=== PATIENT | female | born 1970 | race Caucasian/White ===

== ENCOUNTER 2017-03-20 07:40 | Inpatient (IN) | payer OTHER ==
[~2017-03-20] VITALS: Ht 162.6 cm; Wt 126.6 kg
[2017-03-20] VITALS (16 sets, daily range): BP systolic 101–171; BP diastolic 45–86
--- NOTE | ~2017-03-20 | CON ---
[place], [place] REPORT OF CONSULTATION NAME[facility]: [id number] UNIT #: [id number] ROOM: 512 DOCTOR: GLORIA DOS SANTOSRADHA BIRTHDATE: [birth year] DOS: 03/21/2017 REQUESTING PHYSICIAN: Dr. Baig. INDICATION: Symptomatic palpitation. ASSESSMENT: 1. Current presentation with symptomatic palpitation occurred after infighting at patient's family with her grandson and mother. 2. Similar symptoms have been going on for the past 15 years. 3. No reported chest pain, heaviness, tightness. 4. Obesity with a high probability of obstructive sleep apnea. 5. Diabetes. 6. Hypertension. 7. Hyperlipidemia. 8. Active tobacco abuse. 9. Occasional alcohol abuse. PLAN: 1. Cycle cardiac enzymes. 2. Check D-dimer. 3. Initiate Lopressor 25 mg 1 tablet p.o. b.i.d. 4. Enteric-coated aspirin 81 mg. 5. Echocardiogram and stress test can be done as an outpatient. 6. Okay to discharge the patient home with early followup in our clinic within 4-6 weeks. 7. Highly recommend a sleep study as an outpatient. 8. Exercise, weight loss. 9. Call for any change in symptoms at any time. HISTORY AND PHYSICAL: The patient is a pleasant 46-year-old female, unknown to our practice, who was referred by Dr. Baig for further evaluation of complaint of symptomatic palpitation and fluttering of the chest that occurred while patient was having a fight with her son-in-law over her grandchildren along with her mother. The patient has been having these symptoms since her son was 10 years old, currently he is 21. They occur mainly with emotional stress. They last only a few minutes, most of the time they are in seconds. Never had any associated dizziness, lightheadedness or near syncope. Never had any chest pain, chest pressure, heaviness, or tightness. No jaw pain, no left arm pain, no back pain. The patient though after her admission last night, she had a mid back pain yesterday. It was dull, aching, lasting only also a few minutes and resolved spontaneously without any provocation. No relation to activity or deep inspiration. The patient is active, does not follow a regular exercise program. Sleeps on 2 pillows with no reported PND, orthopnea, or pedal edema. The patient does though report snoring. No fever, no chills, no night sweats, maintained good appetite, no weight loss. PAST MEDICAL HISTORY: As reported in my assessment. SOCIAL HISTORY: The patient continues to smoke actively, previous history of [place], [place] REPORT OF CONSULTATION NAME: [facility]: [id number] UNIT #: [id number] ROOM: [facility] DOCTOR: RADHA CASTRO MD BIRTHDATE: [birth year] alcohol abuse, no history of drug abuse. FAMILY HISTORY: The patient's mother is still alive. Her dad at age 48 of lung cancer. She has one brother and one sister with no early family history of heart disease. CURRENT MEDICATIONS: Lipitor, Cozaar, hydrochlorothiazide, Tricor, Lovenox, insulin, Vistaril, Augmentin, Restoril, Zofran, Dulcolax, [place], and Tylenol. ALLERGIES: The patient has no known drug allergies. REVIEW OF SYSTEMS: The patient denies any current headache, diplopia, or blurry vision. No fever, no chills, no night sweats. No abdominal pain, no bright red blood per rectum or tarry stools. The patient admits to joint pain and occasional muscular pain. The patient admits to anxiety and occasional depression. No polyuria, no polydipsia. No skin rash. Review of all other systems has been negative. PHYSICAL EXAMINATION: GENERAL: The patient is alert, oriented x 3, quite pleasant. VITAL SIGNS: Blood pressure 130/70, heart rate 88, respiratory rate of 14, temperature 98.9. HEENT: Extraocular muscles intact. Pupils equal, round, reactive to light. Conjunctivae, no pallor. Throat, no petechiae. NECK: Good carotid upstroke. Unable to appreciate any bruit, no lymphadenopathy, no thyromegaly. HEART: S1, S2 with holosystolic murmur in the left upper sternal border. No rub. No retrosternal heave. CHEST AND BACK: No deformities. LUNGS: Clear to auscultation. Decreased air movement, but no britany wheezing or rales. ABDOMEN: Morbidly obese, soft, nontender. Present bowel sounds. No masses, no bruits. LOWER EXTREMITIES: There is mild ankle edema bilateral with faint distal pulses. NEUROLOGIC: Grossly nonfocal. SKIN: There is venous discoloration in both lower extremities. LABORATORY DATA: White count 6.5, hemoglobin 14.1, potassium 4.1, creatinine is 0.6, GFR more than 60%. Hemoglobin A1c 11.7. Normal liver function tests. CK-MB 0.5, CK is 41. Troponin is less than 0.015. [place], [place] REPORT OF CONSULTATION NAME: IONMADHAV Claribel UNIT #: [id number] ROOM: 512 DOCTOR: RADHA CASTRO MD BIRTHDATE: [birth year] RADHA CASTRO MD CM:CONSTR:REPORT OF CONSULTATION 1816 03/22/17 0056 interface
--- NOTE | ~2017-03-20 | ST ---
[place], [place] EXERCISE STRESS TEST REPORT [id number] UNIT #: [id number] ROOM: 512 DOCTOR: RADHA CASTRO MD BIRTHDATE: [birth year] DOS: INDICATION: Chest pain. PROCEDURE: The patient was exercised on a treadmill using Bairon protocol. The patient exercised for 6 minutes reaching 86% of her maximum predicted heart rate. Maximum workload was 8 METS. Double product 28,310. Test was terminated due to fatigue and shortness of breath. No complaint of chest pain, chest pressure, heaviness or tightness. No back pain. BLOOD PRESSURE RESPONSE: Resting blood pressure 112/61, ending blood pressure 190/60. ELECTROCARDIOGRAM INTERPRETATION: Resting electrocardiogram showing normal sinus rhythm, poor R-wave progression with criteria for left atrial enlargement. At the peak of the stress test, there was no evidence of any significant ST or T-wave changes suggestive of myocardial ischemia. No arrhythmias were noted. SUMMARY: 1. Adequate stress test with good functional capacity. 2. Negative treadmill stress test for stress induced myocardial ischemia. 3. No arrhythmias were noted. 4. Normal blood pressure at rest with normal blood pressure response to exercise. 5. No Myoview was done. RADHA CASTRO MD CM:STRESS:EXERCISE STRESS TEST REPORT [id number] 0001 RADHA CASTRO MD
--- NOTE | ~2017-03-20 | PR ---
[place], [place] PROGRESS NOTE [id number] UNIT #: [id number] ROOM: 512 DOCTOR: RADHA CASTRO MD BIRTHDATE: [birth year] DOS: SUBJECTIVE: The patient is walking in the hallway. The patient had only a single episode of fluttering with no evidence of any arrhythmia. No chest pain. No more back pain. OBJECTIVE: VITAL SIGNS: Blood pressure 118/54, heart rate 84. NECK: Good upstroke. No bruit. HEART: S1, S2 with no rub. LUNGS: Clear to auscultation. EXTREMITIES: Lower extremities, mild ankle edema. ASSESSMENT AND PLAN: Presentation with symptomatic palpitation that has been going on for many years, got worse recently along with atypical back pain and no reported chest pains. The patient stayed overnight in the hospital for that. We would proceed to do a walking stress test without nuclear along with echocardiogram. Continue Lopressor for now along with enteric coated baby aspirin. Switching to Crestor will be advised in view of the patient has ____ along with elevated LDL 159. The patient might benefit from better control of diabetes with a new line of medication. Lovaza or fish oil supplements are highly also recommended. The patient can be discharged home from the cardiac point of view with early followup in our clinic within 4-6 weeks. RADHA CASTRO MD CM:PNAMADOU [id number] RADHA CASTRO MD 03/22/17 1800 interface
[~2017-03-20 07:40] MED LIST: ANAPROX DS550 MG PO; ANUSOL-HC25 MG RC; AUGMENTIN 875 M1 TAB PO; AUGMENTIN XR 101 TER PO; BACTRIM DS 8001 TA1 PO; BENICAR5 MG PO; CEFTIN500 MG PO; CIPRODEX 0.3%-7.5 ML OT; CIPROFLOXACIN500 MG PO; CLARITIN10 MG PO; COLACE100 MG PO; DUONEB 3 MG/3 ML3 M1 INH; GLIPIZIDE5 MG PO; HYDROCODONE BIT1 T11 PO; HYDROMET PO; HYZAAR 50/12.5M1 TAB PO; KEFLEX500 MG PO; LEVAQUIN750 MG PO; MEDROL DOSEPAK4 MG PO; METFORMIN500 MG PO; PERCOCET 325 MG1 TA2 PO; PREDNICOT20 MG PO; SIMVASTATIN20 MG PO; SINGULAIR10 MG PO
[2017-03-20] MEDS ORDERED: AUGMENTIN 875875 MG PO (07:48)
[2017-03-20] MEDS ORDERED: LANTUS100 U/ML SC (07:48)
[2017-03-20 08:03] LABS: BASO % 0.1 % (0.0-1.0); EOS # 0.1 10*3/uL (0.0-0.4); EOS % 0.6 % (1.0-4.0); HEMATOCRIT 44.9 % (37.0-47.0); HEMOGLOBIN 15.2 g/dl (12.0-16.0); LYMPH # 1.8 10*3/uL (1.3-4.4); LYMPH % 23.4 % (27.0-41.0); MEAN CELL VOLUME 86.8 fl (81.0-99.0); MEAN CORPUSCULAR HGB 29.4 pg (27.0-31.0); MEAN CORPUSCULAR HGB CONC 33.9 g/dl (33.0-37.0); MEAN PLATELET VOLUME 11.5 fl (9.6-12.3); MONO # 0.4 10*3/uL (0.1-1.0); MONO % 5.3 % (3.0-9.0); NEUT # 5.5 10*3/uL (2.3-7.9); NEUT % 70.2 % (47.0-73.0); PLATELET COUNT AUTOMATED 190 10*3/uL (130-400); RED BLOOD COUNT 5.17 10*6/uL (4.10-5.10); RED CELL DISTRI WIDTH 11.9 % (0-14.5); WHITE BLOOD COUNT 7.9 10*3/uL (4.8-10.8)
[2017-03-20 08:10] LABS: INTERNATIONAL NORM RATIO 0.9 (2.0-3.5); PROTHROMBIN TIME 9.7 SECONDS (9.0-12.4)
[2017-03-20 08:21] LABS: ALBUMIN 3.3 gm/dl (3.1-4.5); ALKALINE PHOSPHATASE 110 U/L (45-117); BILIRUBIN, TOTAL 0.5 mg/dl (0.2-1.0); BUN 20 mg/dl (7-24); CARBON DIOXIDE 28 mmol/L (21-32); CHLORIDE 97 mmol/L (98-107); EST GLOM FILT AFRICAN AMERICAN > 60 ml/min; GLUCOSE 328 mg/dL (65-99); MAGNESIUM 1.8 mg/dL (1.5-2.1); POTASSIUM 4.4 mmol/L (3.5-5.1); SGOT/AST 9 IU/L (3-35); SGPT/ALT 21 U/L (12-78); SODIUM 134 mmol/L (136-145); TOTAL PROTEIN 7.2 gm/dL (6.4-8.2)
[2017-03-20 08:22] LABS: TROPONIN I < 0.015 ng/ml (<0.045)
[2017-03-20 12:20] LABS: CPK 37 U/L (26-192)
[2017-03-20 12:22] LABS: CKMB < 0.5 ng/ml (0.5-3.6)
[2017-03-20 18:32] LABS: CPK 33 U/L (26-192)
[2017-03-20 18:33] LABS: CKMB < 0.5 ng/ml (0.5-3.6)
[2017-03-21] VITALS: BP 115/59
[2017-03-21 00:34] LABS: CPK 41 U/L (26-192)
[2017-03-21 00:38] LABS: CKMB < 0.5 ng/ml (0.5-3.6)
[2017-03-21 06:51] LABS: BASO % 0.2 % (0.0-1.0); EOS % 0.6 % (1.0-4.0); HEMATOCRIT 42.1 % (37.0-47.0); HEMOGLOBIN 14.1 g/dl (12.0-16.0); LYMPH # 1.7 10*3/uL (1.3-4.4); LYMPH % 26.7 % (27.0-41.0); MEAN CELL VOLUME 88.3 fl (81.0-99.0); MEAN CORPUSCULAR HGB 29.6 pg (27.0-31.0); MEAN CORPUSCULAR HGB CONC 33.5 g/dl (33.0-37.0); MEAN PLATELET VOLUME 11.8 fl (9.6-12.3); MONO # 0.4 10*3/uL (0.1-1.0); NEUT # 4.3 10*3/uL (2.3-7.9); NEUT % 66.3 % (47.0-73.0); PLATELET COUNT AUTOMATED 167 10*3/uL (130-400); RED BLOOD COUNT 4.77 10*6/uL (4.10-5.10); WHITE BLOOD COUNT 6.5 10*3/uL (4.8-10.8)
[2017-03-21 07:03] LABS: HEMOGLOBIN A1c 11.7 % (4.8-5.6)
[2017-03-21 07:16] LABS: ALBUMIN 2.9 gm/dl (3.1-4.5); ALKALINE PHOSPHATASE 95 U/L (45-117); BILIRUBIN, TOTAL 0.4 mg/dl (0.2-1.0); BUN 14 mg/dl (7-24); CARBON DIOXIDE 29 mmol/L (21-32); CHLORIDE 99 mmol/L (98-107); CHOLESTEROL 244 mg/dL (<200); EST GLOM FILT AFRICAN AMERICAN > 60 ml/min; FREE T4 1.18 ng/dl (0.76-1.46); GLUCOSE 363 mg/dL (65-99); HDL CHOLESTEROL 33 mg/dl (40-60); INTERNATIONAL NORM RATIO 0.9 (2.0-3.5); LDL CHOLESTEROL 159 mg/dL (9-159); MAGNESIUM 1.9 mg/dL (1.5-2.1); PHOSPHOROUS 3.6 mg/dL (2.5-4.9); POTASSIUM 4.1 mmol/L (3.5-5.1); PROTHROMBIN TIME 9.8 SECONDS (9.0-12.4); SGOT/AST 10 IU/L (3-35); SGPT/ALT 15 U/L (12-78); SODIUM 140 mmol/L (136-145); TOTAL PROTEIN 6.4 gm/dL (6.4-8.2); TRIGLYCERIDES 260 mg/dl (<150); VLDL CHOLESTEROL 52 mg/dL (6-40)
[2017-03-21 08:00] VITALS: BP 111/51
[2017-03-21 09:24] LABS: VITAMIN D, 25-HYDROXY 10.4 ng/mL (30-100)
[2017-03-21 09:25] LABS: FOLIC ACID 8.71 ng/mL (>5.38)
[2017-03-21 12:00] VITALS: BP 127/58
[2017-03-21 16:00] VITALS: BP 130/70
[2017-03-21 20:00] VITALS: BP 123/60
[2017-03-22] VITALS: BP 118/54
[2017-03-22 06:03] LABS: BASO % 0.1 % (0.0-1.0); EOS # 0.1 10*3/uL (0.0-0.4); EOS % 0.7 % (1.0-4.0); HEMATOCRIT 44.7 % (37.0-47.0); HEMOGLOBIN 14.7 g/dl (12.0-16.0); LYMPH # 2.4 10*3/uL (1.3-4.4); LYMPH % 32.2 % (27.0-41.0); MEAN CELL VOLUME 88.7 fl (81.0-99.0); MEAN CORPUSCULAR HGB 29.2 pg (27.0-31.0); MEAN CORPUSCULAR HGB CONC 32.9 g/dl (33.0-37.0); MEAN PLATELET VOLUME 11.6 fl (9.6-12.3); MONO # 0.4 10*3/uL (0.1-1.0); MONO % 5.2 % (3.0-9.0); NEUT # 4.6 10*3/uL (2.3-7.9); NEUT % 61.5 % (47.0-73.0); PLATELET COUNT AUTOMATED 204 10*3/uL (130-400); RED BLOOD COUNT 5.04 10*6/uL (4.10-5.10); WHITE BLOOD COUNT 7.4 10*3/uL (4.8-10.8)
[2017-03-22 06:29] LABS: BUN 14 mg/dl (7-24); CARBON DIOXIDE 28 mmol/L (21-32); CHLORIDE 99 mmol/L (98-107); EST GLOM FILT AFRICAN AMERICAN > 60 ml/min; GLUCOSE 296 mg/dL (65-99); POTASSIUM 4.1 mmol/L (3.5-5.1); SODIUM 139 mmol/L (136-145)
[2017-03-22 08:00] VITALS: BP 115/68
[2017-03-22] MEDS ORDERED: ATORVASTATIN CA40 M1 PO (11:02)
== END 2017-03-22 11:42 | disposition home or self-care (01) | DRG 313 ==
LOC: ED 07:40 → EDHOLD 09:41 → 5E 09:41 → EDHOLD 11:49 → 5E 15:23
PROVIDERS: Emergency Medicine; Hospitalist
PROC: 4A02XM4 Measurement of Cardiac Total Activity, External Approach (ICD-10-PCS; principal; 2017-03-22)
DX: R07.9 Chest pain, unspecified (principal); E87.1 Hypo-osmolality and hyponatremia; I10 Essential (primary) hypertension; Z68.42 Body mass index [BMI] 45.0-49.9, adult; K21.9 Gastro-esophageal reflux disease without esophagitis; I83.90 Asymptomatic varicose veins of unspecified lower extremity; E78.5 Hyperlipidemia, unspecified; E11.9 Type 2 diabetes mellitus without complications; R00.0 Tachycardia, unspecified; E66.9 Obesity, unspecified; F17.210 Nicotine dependence, cigarettes, uncomplicated; Z79.4 Long term (current) use of insulin; Z79.899 Other long term (current) drug therapy; Z90.710 Acquired absence of both cervix and uterus; Z82.49 Family history of ischemic heart disease and other diseases of the circulatory system; Z79.2 Long term (current) use of antibiotics; Z80.1 Family history of malignant neoplasm of trachea, bronchus and lung; Z71.6 Tobacco abuse counseling; Z90.49 Acquired absence of other specified parts of digestive tract; Z98.891 History of uterine scar from previous surgery

== ENCOUNTER → 2017-07-12 | Outpatient (CLI) | payer OTHER ==
[~2017-07-12] MED LIST changes: +ATORVASTATIN CA40 M1 PO; +AUGMENTIN 875875 MG PO; +LANTUS100 U/ML SC
[2017-07-12 07:30] LABS: BASO % 0.3 % (0.0-1.0); EOS # 0.1 10*3/uL (0.0-0.4); EOS % 1.4 % (1.0-4.0); HEMATOCRIT 47.7 % (37.0-47.0); HEMOGLOBIN 15.7 g/dl (12.0-16.0); LYMPH # 1.9 10*3/uL (1.3-4.4); LYMPH % 27.5 % (27.0-41.0); MEAN CELL VOLUME 87.8 fl (81.0-99.0); MEAN CORPUSCULAR HGB 28.9 pg (27.0-31.0); MEAN CORPUSCULAR HGB CONC 32.9 g/dl (33.0-37.0); MEAN PLATELET VOLUME 12.3 fl (9.6-12.3); MONO # 0.4 10*3/uL (0.1-1.0); MONO % 5.4 % (3.0-9.0); NEUT # 4.6 10*3/uL (2.3-7.9); NEUT % 65.3 % (47.0-73.0); PLATELET COUNT AUTOMATED 164 10*3/uL (130-400); RED BLOOD COUNT 5.43 10*6/uL (4.10-5.10); RED CELL DISTRI WIDTH 12.2 % (0-14.5)
[2017-07-12 07:57] LABS: ALBUMIN 3.3 gm/dl (3.1-4.5); ALKALINE PHOSPHATASE 123 U/L (45-117); BUN 10 mg/dl (7-24); CHLORIDE 101 mmol/L (98-107); CHOLESTEROL 188 mg/dL (<200); CREATININE 0.79 mg/dL (0.55-1.02); HDL CHOLESTEROL 39 mg/dl (40-60); LDL CHOLESTEROL 120 mg/dL (9-159); POTASSIUM 4.5 mmol/L (3.5-5.1); SGOT/AST 18 IU/L (3-35); SGPT/ALT 23 U/L (12-78); SODIUM 138 mmol/L (136-145); TOTAL PROTEIN 7.1 gm/dL (6.4-8.2); TRIGLYCERIDES 144 mg/dl (<150); VLDL CHOLESTEROL 29 mg/dL (6-40)
== END | disposition home or self-care (01) ==
LOC: LAB 06:56
PROVIDERS: Registered Nurse Flight
DX: E11.8 Type 2 diabetes mellitus with unspecified complications (principal)

== ENCOUNTER → 2018-03-14 | Outpatient (CLI) | payer OTHER ==
[2018-03-14 08:01] LABS: BILIRUBIN NEGATIVE (NEGATIVE); BLOOD NEGATIVE (NEGATIVE); CLARITY SL CLOUDY (CLEAR); COLOR YELLOW (YELLOW); GLUCOSE NEGATIVE (NEGATIVE); KETONE NEGATIVE (NEGATIVE); LEUKO ESTERASE NEGATIVE (NEGATIVE); NITRITE NEGATIVE (NEGATIVE); PH 5.5 (5.0-9.0); UROBILINOGEN 0.2 E.U./dl (0.2-1.0)
[2018-03-14 08:15] LABS: ALBUMIN 3.3 gm/dl (3.1-4.5); BILIRUBIN, DIRECT < 0.1 mg/dL (0.0-0.2); BUN 13 mg/dl (7-24); CHLORIDE 104 mmol/L (98-107); CHOLESTEROL 251 mg/dL (<200); CREATININE 0.73 mg/dL (0.55-1.02); POTASSIUM 4.1 mmol/L (3.5-5.1); SGOT/AST 10 IU/L (3-35); SGPT/ALT 18 U/L (12-78); SODIUM 142 mmol/L (136-145); TOTAL PROTEIN 7.3 gm/dL (6.4-8.2)
[2018-03-14 08:19] LABS: ALKALINE PHOSPHATASE 100 U/L (45-117); HDL CHOLESTEROL 35 mg/dl (40-60); LDL CHOLESTEROL 183 mg/dL (9-159); TRIGLYCERIDES 166 mg/dl (<150); VLDL CHOLESTEROL 33 mg/dL (6-40)
== END | disposition home or self-care (01) ==
LOC: LAB 06:58
PROVIDERS: Internal Medicine
DX: E11.65 Type 2 diabetes mellitus with hyperglycemia (principal); E78.5 Hyperlipidemia, unspecified; E55.9 Vitamin D deficiency, unspecified

== ENCOUNTER → 2018-07-30 | Outpatient (CLI) | payer OTHER ==
[2018-07-30 07:43] LABS: BILIRUBIN NEGATIVE (NEGATIVE); BLOOD NEGATIVE (NEGATIVE); CLARITY SL CLOUDY (CLEAR); COLOR YELLOW (YELLOW); GLUCOSE 3+ (NEGATIVE); KETONE NEGATIVE (NEGATIVE); LEUKO ESTERASE NEGATIVE (NEGATIVE); NITRITE NEGATIVE (NEGATIVE); PH 5.5 (5.0-9.0); UROBILINOGEN 0.2 E.U./dl (0.2-1.0)
[2018-07-30 08:02] LABS: ALBUMIN 3.3 gm/dl (3.1-4.5); ALKALINE PHOSPHATASE 88 U/L (45-117); BILIRUBIN, DIRECT < 0.1 mg/dL (0.0-0.2); BUN 16 mg/dl (7-24); CHLORIDE 104 mmol/L (98-107); CHOLESTEROL 235 mg/dL (<200); CREATININE 0.74 mg/dL (0.55-1.02); HDL CHOLESTEROL 33 mg/dl (40-60); LDL CHOLESTEROL 169 mg/dL (9-159); POTASSIUM 3.9 mmol/L (3.5-5.1); SGOT/AST 9 IU/L (3-35); SGPT/ALT 17 U/L (12-78); SODIUM 141 mmol/L (136-145); TOTAL PROTEIN 6.9 gm/dL (6.4-8.2); TRIGLYCERIDES 167 mg/dl (<150); VLDL CHOLESTEROL 33 mg/dL (6-40)
== END | disposition home or self-care (01) ==
LOC: LAB 07:08
PROVIDERS: Internal Medicine
DX: E11.65 Type 2 diabetes mellitus with hyperglycemia (principal); E78.5 Hyperlipidemia, unspecified; E55.9 Vitamin D deficiency, unspecified

== ENCOUNTER → 2018-09-28 | Outpatient (CLI) | payer OTHER | END | disposition home or self-care (01) | LOC: RAD 10:13 | DX: M48.02 Spinal stenosis, cervical region (principal); M54.6 Pain in thoracic spine; M25.512 Pain in left shoulder; R20.0 Anesthesia of skin; Z91.81 History of falling ==

== ENCOUNTER → 2018-11-14 | Outpatient (CLI) | payer OTHER ==
[2018-11-14 08:48] LABS: ALBUMIN 3.3 gm/dl (3.1-4.5); ALKALINE PHOSPHATASE 100 U/L (45-117); BILIRUBIN, DIRECT < 0.1 mg/dL (0.0-0.2); BUN 15 mg/dl (7-24); CHLORIDE 106 mmol/L (98-107); CHOLESTEROL 242 mg/dL (<200); CREATININE 0.74 mg/dL (0.55-1.02); HDL CHOLESTEROL 33 mg/dl (40-60); LDL CHOLESTEROL 178 mg/dL (9-159); POTASSIUM 4.1 mmol/L (3.5-5.1); SGOT/AST 14 IU/L (3-35); SGPT/ALT 20 U/L (12-78); SODIUM 143 mmol/L (136-145); TOTAL PROTEIN 7.2 gm/dL (6.4-8.2); TRIGLYCERIDES 153 mg/dl (<150); VLDL CHOLESTEROL 31 mg/dL (6-40)
[2018-11-14 08:55] LABS: BILIRUBIN NEGATIVE (NEGATIVE); BLOOD NEGATIVE (NEGATIVE); CLARITY SL CLOUDY (CLEAR); COLOR YELLOW (YELLOW); GLUCOSE 3+ (NEGATIVE); KETONE TRACE (NEGATIVE); LEUKO ESTERASE NEGATIVE (NEGATIVE); NITRITE NEGATIVE (NEGATIVE); UROBILINOGEN 0.2 E.U./dl (0.2-1.0)
[2018-11-14 08:56] LABS: BACTERIA 3+; WBC 0-2 wbc/hpf (0-5)
== END | disposition home or self-care (01) ==
LOC: LAB 07:09
PROVIDERS: Internal Medicine
DX: E11.65 Type 2 diabetes mellitus with hyperglycemia (principal); E78.5 Hyperlipidemia, unspecified; E55.9 Vitamin D deficiency, unspecified

== ENCOUNTER → 2019-04-14 | Outpatient (CLI) | payer OTHER ==
[2019-04-14 08:39] LABS: BILIRUBIN NEGATIVE (NEGATIVE); BLOOD NEGATIVE (NEGATIVE); CLARITY CLEAR (CLEAR); COLOR YELLOW (YELLOW); GLUCOSE 3+ (NEGATIVE); KETONE NEGATIVE (NEGATIVE); LEUKO ESTERASE NEGATIVE (NEGATIVE); NITRITE NEGATIVE (NEGATIVE); PH 5.5 (5.0-9.0); SPECIFIC GRAVITY 1.025 (1.005-1.030); UROBILINOGEN 0.2 E.U./dl (0.2-1.0)
[2019-04-14 09:00] LABS: ALBUMIN 3.4 gm/dl (3.1-4.5); ALKALINE PHOSPHATASE 82 U/L (45-117); BILIRUBIN, DIRECT < 0.1 mg/dL (0.0-0.2); BUN 17 mg/dl (7-24); CHLORIDE 107 mmol/L (98-107); CHOLESTEROL 201 mg/dL (<200); CREATININE 0.65 mg/dL (0.55-1.02); HDL CHOLESTEROL 35 mg/dl (40-60); LDL CHOLESTEROL 129 mg/dL (9-159); POTASSIUM 3.6 mmol/L (3.5-5.1); SGOT/AST 11 IU/L (3-35); SGPT/ALT 21 U/L (12-78); SODIUM 143 mmol/L (136-145); TOTAL PROTEIN 6.9 gm/dL (6.4-8.2); TRIGLYCERIDES 185 mg/dl (<150); VLDL CHOLESTEROL 37 mg/dL (6-40)
== END | disposition home or self-care (01) ==
LOC: LAB 07:08
PROVIDERS: Internal Medicine
DX: E55.9 Vitamin D deficiency, unspecified (principal); E11.65 Type 2 diabetes mellitus with hyperglycemia; E78.5 Hyperlipidemia, unspecified

== ENCOUNTER → 2019-10-17 | Outpatient (CLI) | payer OTHER ==
[2019-10-17 08:46] LABS: BILIRUBIN NEGATIVE (NEGATIVE); BLOOD NEGATIVE (NEGATIVE); CLARITY CLOUDY (CLEAR); COLOR YELLOW (YELLOW); GLUCOSE 3+ (NEGATIVE); KETONE NEGATIVE (NEGATIVE); LEUKO ESTERASE NEGATIVE (NEGATIVE); NITRITE NEGATIVE (NEGATIVE); PH 5.5 (5.0-9.0); SPECIFIC GRAVITY 1.025 (1.005-1.030); UROBILINOGEN 0.2 E.U./dl (0.2-1.0)
[2019-10-17 08:57] LABS: ALBUMIN 3.5 gm/dl (3.1-4.5); ALKALINE PHOSPHATASE 86 U/L (45-117); BILIRUBIN, DIRECT 0.1 mg/dL (0.0-0.2); BUN 15 mg/dl (7-24); CHLORIDE 107 mmol/L (98-107); CHOLESTEROL 200 mg/dL (<200); CREATININE 0.77 mg/dL (0.55-1.02); HDL CHOLESTEROL 36 mg/dl (40-60); LDL CHOLESTEROL 133 mg/dL (9-159); POTASSIUM 4.1 mmol/L (3.5-5.1); SGOT/AST 14 IU/L (3-35); SGPT/ALT 25 U/L (12-78); SODIUM 143 mmol/L (136-145); TOTAL PROTEIN 7.2 gm/dL (6.4-8.2); TRIGLYCERIDES 154 mg/dl (<150); VLDL CHOLESTEROL 31 mg/dL (6-40)
[2019-10-17 09:14] LABS: BACTERIA 2+; EPITHELIAL CELLS 50-55; YEAST 1+
== END | disposition home or self-care (01) ==
LOC: LAB 07:27
PROVIDERS: Internal Medicine
DX: E11.65 Type 2 diabetes mellitus with hyperglycemia (principal); E78.5 Hyperlipidemia, unspecified; E55.9 Vitamin D deficiency, unspecified; R25.2 Cramp and spasm

== ENCOUNTER 2020-02-05 12:44 | Emergency (ER) | payer OTHER ==
[~2020-02-05] VITALS: Ht 157.4 cm; Wt 120.2 kg
[2020-02-05 12:53] VITALS: BP 106/48
[2020-02-05 13:45] LABS: BASO % 0.3 % (0.0-1.0); EOS # 0.1 10*3/uL (0.0-0.4); EOS % 0.7 % (1.0-4.0); HEMATOCRIT 47.8 % (37.0-47.0); LYMPH # 2.1 10*3/uL (1.3-4.4); LYMPH % 18.7 % (27.0-41.0); MEAN CELL VOLUME 89.7 fl (81.0-99.0); MEAN CORPUSCULAR HGB 29.3 pg (27.0-31.0); MEAN CORPUSCULAR HGB CONC 32.6 g/dl (33.0-37.0); MEAN PLATELET VOLUME 11.5 fl (9.6-12.3); MONO # 0.6 10*3/uL (0.1-1.0); MONO % 4.9 % (3.0-9.0); NEUT # 8.4 10*3/uL (2.3-7.9); NEUT % 75.1 % (47.0-73.0); PLATELET COUNT AUTOMATED 217 10*3/uL (130-400); RED BLOOD COUNT 5.33 10*6/uL (4.10-5.10); RED CELL DISTRI WIDTH 12.9 % (0-14.5); WHITE BLOOD COUNT 11.1 10*3/uL (4.8-10.8)
[2020-02-05 13:57] LABS: ACT PARTIAL THROMBO TIME 25.4 SECONDS (20.0-32.1); INTERNATIONAL NORM RATIO 0.9 (2.0-3.5)
[2020-02-05 14:01] LABS: ALBUMIN 3.5 gm/dl (3.1-4.5); ALKALINE PHOSPHATASE 81 U/L (45-117); BUN 22 mg/dl (7-24); CHLORIDE 105 mmol/L (98-107); CREATININE 0.81 mg/dL (0.55-1.02); LIPASE 104 U/L (73-393); POTASSIUM 4.1 mmol/L (3.5-5.1); SGOT/AST 16 IU/L (3-35); SGPT/ALT 30 U/L (12-78); SODIUM 139 mmol/L (136-145); TOTAL PROTEIN 7.3 gm/dL (6.4-8.2)
[2020-02-05 14:05] LABS: TROPONIN I < 0.015 ng/ml (<0.045)
[2020-02-05 15:05] LABS: CLARITY CLEAR (CLEAR); COLOR YELLOW (YELLOW); GLUCOSE 3+ (NEGATIVE)
[2020-02-05 15:06] LABS: BILIRUBIN NEGATIVE (NEGATIVE); BLOOD NEGATIVE (NEGATIVE); KETONE NEGATIVE (NEGATIVE); LEUKO ESTERASE NEGATIVE (NEGATIVE); NITRITE NEGATIVE (NEGATIVE); SPECIFIC GRAVITY 1.025 (1.005-1.030); UROBILINOGEN 0.2 E.U./dl (0.2-1.0)
[2020-02-05 15:07] LABS: BACTERIA 2+; EPITHELIAL CELLS TNTC; MUCOUS 2+; WBC 0-2 wbc/hpf (0-5); YEAST 1+
[2020-02-05] MEDS ORDERED: IBUPROFEN600 MG PO (15:38)
== END 2020-02-05 16:08 | disposition home or self-care (01) ==
LOC: ED 12:44
PROVIDERS: Physician Assistant
DX: S92.321A Displaced fracture of second metatarsal bone, right foot, initial encounter for closed fracture (principal); S92.331A Displaced fracture of third metatarsal bone, right foot, initial encounter for closed fracture; S92.341A Displaced fracture of fourth metatarsal bone, right foot, initial encounter for closed fracture; R55 Syncope and collapse; K21.9 Gastro-esophageal reflux disease without esophagitis; I10 Essential (primary) hypertension; E11.9 Type 2 diabetes mellitus without complications; Z79.899 Other long term (current) drug therapy; Z79.2 Long term (current) use of antibiotics; Z79.4 Long term (current) use of insulin; Z90.49 Acquired absence of other specified parts of digestive tract; Z98.51 Tubal ligation status; W18.30XA Fall on same level, unspecified, initial encounter; Y93.89 Activity, other specified; Y92.098 Other place in other non-institutional residence as the place of occurrence of the external cause; Y99.8 Other external cause status

== ENCOUNTER → 2020-03-22 | Outpatient (CLI) | payer OTHER ==
[~2020-03-22] MED LIST changes: +IBUPROFEN600 MG PO
[2020-03-22 09:03] LABS: CHLORIDE 109 mmol/L (98-107); POTASSIUM 4.1 mmol/L (3.5-5.1); SODIUM 142 mmol/L (136-145)
[2020-03-22 09:09] LABS: ALBUMIN 3.2 gm/dl (3.1-4.5); ALKALINE PHOSPHATASE 79 U/L (45-117); BILIRUBIN, DIRECT 0.1 mg/dL (0.0-0.2); BUN 15 mg/dl (7-24); CHOLESTEROL 201 mg/dL (<200); CREATININE 0.83 mg/dL (0.55-1.02); HDL CHOLESTEROL 38 mg/dl (40-60); LDL CHOLESTEROL 140 mg/dL (9-159); SGOT/AST 17 IU/L (3-35); SGPT/ALT 21 U/L (12-78); TOTAL PROTEIN 6.7 gm/dL (6.4-8.2); TRIGLYCERIDES 117 mg/dl (<150); VLDL CHOLESTEROL 23 mg/dL (6-40)
[2020-03-22 09:54] LABS: CLARITY CLOUDY (CLEAR); COLOR YELLOW (YELLOW); GLUCOSE 3+ (NEGATIVE)
[2020-03-22 09:55] LABS: BACTERIA 3+; BILIRUBIN 1+ (NEGATIVE); BLOOD NEGATIVE (NEGATIVE); EPITHELIAL CELLS 16-20; KETONE NEGATIVE (NEGATIVE); LEUKO ESTERASE NEGATIVE (NEGATIVE); NITRITE NEGATIVE (NEGATIVE); UROBILINOGEN 0.2 E.U./dl (0.2-1.0); YEAST 1+
== END | disposition home or self-care (01) ==
LOC: LAB 07:11
PROVIDERS: Internal Medicine
DX: E11.65 Type 2 diabetes mellitus with hyperglycemia (principal); E78.5 Hyperlipidemia, unspecified; R25.2 Cramp and spasm; E55.9 Vitamin D deficiency, unspecified

== ENCOUNTER → 2020-09-06 | Outpatient (CLI) | payer OTHER | END | disposition home or self-care (01) | LOC: MAMMO 17:30 | PROVIDERS: ATTEND Nurse Practitioner Family | DX: Z12.31 Encounter for screening mammogram for malignant neoplasm of breast (principal) ==

== ENCOUNTER 2020-11-04 12:05 | Emergency (ER) | payer OTHER ==
[~2020-11-04] VITALS: Ht 157.4 cm; Wt 117.9 kg
[2020-11-04 12:10] VITALS: BP 130/76
[2020-11-04 13:04] LABS: BASO % 0.2 % (0.0-1.0); EOS # 0.1 10*3/uL (0.0-0.4); HEMATOCRIT 50.7 % (37.0-47.0); LYMPH # 2.3 10*3/uL (1.3-4.4); LYMPH % 27.4 % (27.0-41.0); MEAN CELL VOLUME 89.6 fl (81.0-99.0); MEAN CORPUSCULAR HGB 28.3 pg (27.0-31.0); MEAN CORPUSCULAR HGB CONC 31.6 g/dl (33.0-37.0); MONO # 0.5 10*3/uL (0.1-1.0); MONO % 5.7 % (3.0-9.0); NEUT # 5.4 10*3/uL (2.3-7.9); NEUT % 65.5 % (47.0-73.0); PLATELET COUNT AUTOMATED 190 10*3/uL (130-400); RED BLOOD COUNT 5.66 10*6/uL (4.10-5.10); RED CELL DISTRI WIDTH 12.6 % (0-14.5); WHITE BLOOD COUNT 8.2 10*3/uL (4.8-10.8)
[2020-11-04 13:21] LABS: ALBUMIN 3.7 gm/dl (3.1-4.5); ALKALINE PHOSPHATASE 82 U/L (45-117); BUN 17 mg/dl (7-24); CHLORIDE 106 mmol/L (98-107); LIPASE 674 U/L (73-393); POTASSIUM 4.1 mmol/L (3.5-5.1); SGOT/AST 10 IU/L (3-35); SGPT/ALT 30 U/L (12-78); SODIUM 139 mmol/L (136-145); TOTAL PROTEIN 7.6 gm/dL (6.4-8.2)
[2020-11-04 15:28] LABS: BILIRUBIN Negative (Negative); BLOOD Negative (Negative); CLARITY Clear (Clear); COLOR Yellow (Yellow); GLUCOSE 3+ (Negative); KETONE 1+ (Negative); LEUKO ESTERASE Negative (Negative); NITRITE Negative (Negative); SPECIFIC GRAVITY >= 1.030 (1.001-1.030); UROBILINOGEN 0.2 E.U./dl (0.0-1.0)
[2020-11-04 15:50] LABS: BACTERIA 2+; EPITHELIAL CELLS 0-2; MUCOUS TRACE
== END 2020-11-04 16:56 | disposition home or self-care (01) ==
LOC: ED 12:05
PROVIDERS: Nurse Practitioner
DX: R10.31 Right lower quadrant pain (principal); E11.9 Type 2 diabetes mellitus without complications; F32.9 Major depressive disorder, single episode, unspecified; F41.9 Anxiety disorder, unspecified; K21.9 Gastro-esophageal reflux disease without esophagitis; F17.200 Nicotine dependence, unspecified, uncomplicated; Z90.49 Acquired absence of other specified parts of digestive tract; Z79.899 Other long term (current) drug therapy; Z79.4 Long term (current) use of insulin; Z98.890 Other specified postprocedural states; Z98.51 Tubal ligation status

== ENCOUNTER → 2020-11-30 | Outpatient (CLI) | payer OTHER ==
[2020-11-30 07:59] LABS: BILIRUBIN Negative (Negative); BLOOD Negative (Negative); CLARITY Clear (Clear); COLOR Yellow (Yellow); GLUCOSE 3+ (Negative); KETONE Trace (Negative); LEUKO ESTERASE Negative (Negative); NITRITE Negative (Negative); SPECIFIC GRAVITY >= 1.030 (1.001-1.030); UROBILINOGEN 0.2 E.U./dl (0.0-1.0)
[2020-11-30 08:12] LABS: BACTERIA TRACE; MUCOUS TRACE; RBC 0-2 rbc/hpf (0-2); WBC 0-2 wbc/hpf (0-5)
[2020-11-30 08:18] LABS: ALBUMIN 3.3 gm/dl (3.1-4.5); BUN 15 mg/dl (7-24); CHLORIDE 109 mmol/L (98-107); POTASSIUM 4.9 mmol/L (3.5-5.1); SGPT/ALT 19 U/L (12-78); SODIUM 141 mmol/L (136-145)
[2020-11-30 08:29] LABS: ALKALINE PHOSPHATASE 77 U/L (45-117); BILIRUBIN, DIRECT 0.1 mg/dL (0.0-0.2); CHOLESTEROL 203 mg/dL (<200); CREATININE 0.81 mg/dL (0.55-1.02); HDL CHOLESTEROL 38 mg/dl (40-60); LDL CHOLESTEROL 146 mg/dL (9-159); SGOT/AST 11 IU/L (3-35); TRIGLYCERIDES 96 mg/dl (<150); VLDL CHOLESTEROL 19 mg/dL (6-40)
== END | disposition home or self-care (01) ==
LOC: LAB 07:27
PROVIDERS: ATTEND Internal Medicine
DX: E11.65 Type 2 diabetes mellitus with hyperglycemia (principal); E78.5 Hyperlipidemia, unspecified; E55.9 Vitamin D deficiency, unspecified; E66.01 Morbid (severe) obesity due to excess calories

== ENCOUNTER → 2021-07-14 | Outpatient (CLI) | payer OTHER ==
[2021-07-14 07:36] LABS: BASO % 0.4 % (0.0-1.0); EOS # 0.1 10*3/uL (0.0-0.4); EOS % 2.1 % (1.0-4.0); LYMPH # 1.6 10*3/uL (1.3-4.4); LYMPH % 31.7 % (27.0-41.0); MEAN CELL VOLUME 89.9 fl (81.0-99.0); MEAN CORPUSCULAR HGB 28.5 pg (27.0-31.0); MEAN CORPUSCULAR HGB CONC 31.7 g/dl (33.0-37.0); MEAN PLATELET VOLUME 11.1 fl (9.6-12.3); MONO # 0.4 10*3/uL (0.1-1.0); MONO % 6.9 % (3.0-9.0); NEUT # 3.1 10*3/uL (2.3-7.9); NEUT % 58.9 % (47.0-73.0); PLATELET COUNT AUTOMATED 185 10*3/uL (130-400); RED BLOOD COUNT 5.23 10*6/uL (4.10-5.10); RED CELL DISTRI WIDTH 12.5 % (0-14.5); WHITE BLOOD COUNT 5.2 10*3/uL (4.8-10.8)
[2021-07-14 07:50] LABS: ALBUMIN 3.2 gm/dl (3.1-4.5); ALKALINE PHOSPHATASE 82 U/L (45-117); BUN 18 mg/dl (7-24); CHLORIDE 108 mmol/L (98-107); CHOLESTEROL 250 mg/dL (<200); CREATININE 0.79 mg/dL (0.55-1.02); LDL CHOLESTEROL 175 mg/dL (9-159); POTASSIUM 4.5 mmol/L (3.5-5.1); SGOT/AST 10 IU/L (3-35); SGPT/ALT 23 U/L (12-78); SODIUM 139 mmol/L (136-145); TOTAL PROTEIN 7.1 gm/dL (6.4-8.2); TRIGLYCERIDES 164 mg/dl (<150)
== END | disposition home or self-care (01) ==
LOC: LAB 07:19
PROVIDERS: ATTEND Nurse Practitioner Family
DX: I10 Essential (primary) hypertension (principal); E11.69 Type 2 diabetes mellitus with other specified complication

== ENCOUNTER → 2022-05-25 | Outpatient (CLI) | payer OTHER ==
[2022-05-25 07:35] LABS: BASO % 0.5 % (0.0-1.0); EOS # 0.1 10*3/uL (0.0-0.4); EOS % 2.2 % (1.0-4.0); HEMATOCRIT 44.7 % (37.0-47.0); LYMPH # 1.8 10*3/uL (1.3-4.4); LYMPH % 30.5 % (27.0-41.0); MEAN CELL VOLUME 89.6 fl (81.0-99.0); MEAN CORPUSCULAR HGB 29.5 pg (27.0-31.0); MEAN CORPUSCULAR HGB CONC 32.9 g/dl (33.0-37.0); MEAN PLATELET VOLUME 10.9 fl (9.6-12.3); MONO # 0.4 10*3/uL (0.1-1.0); MONO % 7.4 % (3.0-9.0); NEUT # 3.5 10*3/uL (2.3-7.9); NEUT % 59.1 % (47.0-73.0); PLATELET COUNT AUTOMATED 179 10*3/uL (130-400); RED BLOOD COUNT 4.99 10*6/uL (4.10-5.10); RED CELL DISTRI WIDTH 12.5 % (0-14.5); WHITE BLOOD COUNT 5.9 10*3/uL (4.8-10.8)
[2022-05-25 07:59] LABS: ALKALINE PHOSPHATASE 75 U/L (45-117); BUN 14 mg/dl (7-24); CHLORIDE 105 mmol/L (98-107); CHOLESTEROL 238 mg/dL (<200); CREATININE 0.76 mg/dL (0.55-1.02); LDL CHOLESTEROL 171 mg/dL (9-159); POTASSIUM 4.6 mmol/L (3.5-5.1); SGOT/AST 13 IU/L (3-35); SGPT/ALT 31 U/L (12-78); SODIUM 142 mmol/L (136-145); TOTAL PROTEIN 6.9 gm/dL (6.4-8.2); TRIGLYCERIDES 109 mg/dl (<150)
== END | disposition home or self-care (01) ==
LOC: LAB 07:05
PROVIDERS: ATTEND Nurse Practitioner Family
DX: E11.69 Type 2 diabetes mellitus with other specified complication (principal); I10 Essential (primary) hypertension; E78.5 Hyperlipidemia, unspecified

== ENCOUNTER 2022-07-24 17:36 | Emergency (ER) | payer OTHER ==
[~2022-07-24] VITALS: Ht 157.4 cm; Wt 127.0 kg
[2022-07-24 17:41] VITALS: BP 140/70
[2022-07-24 18:34] LABS: BASO % 0.2 % (0.0-1.0); EOS % 0.3 % (1.0-4.0); HEMATOCRIT 44.4 % (37.0-47.0); LYMPH # 0.9 10*3/uL (1.3-4.4); LYMPH % 9.2 % (27.0-41.0); MEAN CELL VOLUME 88.3 fl (81.0-99.0); MEAN CORPUSCULAR HGB 29.6 pg (27.0-31.0); MEAN CORPUSCULAR HGB CONC 33.6 g/dl (33.0-37.0); MEAN PLATELET VOLUME 10.9 fl (9.6-12.3); MONO # 0.3 10*3/uL (0.1-1.0); MONO % 2.6 % (3.0-9.0); NEUT % 87.3 % (47.0-73.0); PLATELET COUNT AUTOMATED 195 10*3/uL (130-400); RED BLOOD COUNT 5.03 10*6/uL (4.10-5.10); WHITE BLOOD COUNT 10.3 10*3/uL (4.8-10.8)
[2022-07-24 18:50] LABS: ALKALINE PHOSPHATASE 93 U/L (45-117); BUN 15 mg/dl (7-24); CHLORIDE 104 mmol/L (98-107); CREATININE 0.97 mg/dL (0.55-1.02); LIPASE 119 U/L (73-393); POTASSIUM 4.6 mmol/L (3.5-5.1); SGOT/AST 15 IU/L (3-35); SGPT/ALT 31 U/L (12-78); SODIUM 140 mmol/L (136-145); TOTAL PROTEIN 7.8 gm/dL (6.4-8.2)
== END 2022-07-24 22:00 | disposition home or self-care (01) ==
LOC: ED 17:36
PROVIDERS: Physician Assistant
DX: R10.13 Epigastric pain (principal); R11.2 Nausea with vomiting, unspecified; Z79.899 Other long term (current) drug therapy; Z90.49 Acquired absence of other specified parts of digestive tract; Z98.890 Other specified postprocedural states; Z98.51 Tubal ligation status; Z87.891 Personal history of nicotine dependence

== ENCOUNTER 2023-08-12 12:05 | Emergency (ER) | payer OTHER ==
[~2023-08-12] VITALS: Wt 127.0 kg
[2023-08-12 13:21] LABS: HEMATOCRIT 50.7 % (37.0-47.0); MEAN CELL VOLUME 88.2 fl (81.0-99.0); MEAN CORPUSCULAR HGB CONC 32.9 g/dl (33.0-37.0); MEAN PLATELET VOLUME 11.4 fl (9.6-12.3); PLATELET COUNT AUTOMATED 201 10*3/uL (130-400); RED BLOOD COUNT 5.75 10*6/uL (4.10-5.10); RED CELL DISTRI WIDTH 13.2 % (0-14.5); WHITE BLOOD COUNT 12.2 10*3/uL (4.8-10.8)
[2023-08-12 13:22] LABS: MANUAL DIFF REFLEX YES
[2023-08-12 13:39] LABS: PLATELET SUFFICIENCY NORMAL (NORMAL); POLYCHROMASIA SLIGHT; TOTAL CELLS COUNTED 100 #CELLS; TOXIC GRANULATION SLIGHT; VACUOLATION OF NEUTROPHILS SLIGHT
[2023-08-12 13:47] LABS: ALKALINE PHOSPHATASE 87 U/L (46-116); BUN 12 mg/dl (9-23); CHLORIDE 103 mmol/L (98-107); LIPASE 47 U/L (12-53); POTASSIUM 4.7 mmol/L (3.4-5.1); SGPT/ALT 11 U/L (5-49); TOTAL PROTEIN 7.8 gm/dL (6.0-8.0)
[2023-08-12 14:25] VITALS: BP 174/89
[2023-08-12] MEDS ORDERED: REGLAN10 M1 PO (15:46)
[2023-08-12] MEDS ORDERED: TRAMADOL HCL50 MG PO (15:46)
== END 2023-08-12 16:02 | disposition home or self-care (01) ==
LOC: ED 12:05
PROVIDERS: Emergency Medicine
DX: R10.10 Upper abdominal pain, unspecified (principal); R11.2 Nausea with vomiting, unspecified; I10 Essential (primary) hypertension; E11.9 Type 2 diabetes mellitus without complications; E78.5 Hyperlipidemia, unspecified; K21.9 Gastro-esophageal reflux disease without esophagitis; Z90.49 Acquired absence of other specified parts of digestive tract; Z98.51 Tubal ligation status; Z98.890 Other specified postprocedural states; Z72.0 Tobacco use; F32.A Depression, unspecified; F41.9 Anxiety disorder, unspecified

== ENCOUNTER → 2025-03-15 | Outpatient (CLI) | payer OTHER ==
[~2025-03-15] MED LIST changes: +REGLAN10 M1 PO; +TRAMADOL HCL50 MG PO
== END | disposition home or self-care (01) ==
LOC: RAD 16:14
PROVIDERS: ATTEND Nurse Practitioner
DX: M25.551 Pain in right hip (principal)

== ENCOUNTER → 2025-04-15 | Outpatient (CLI) | payer OTHER | END | disposition home or self-care (01) | LOC: CARD 14:48 | PROVIDERS: ATTEND Nurse Practitioner Family | DX: R63.5 Abnormal weight gain (principal) ==

== ENCOUNTER → 2025-05-18 | Outpatient (CLI) | payer OTHER ==
[2025-05-18 07:44] LABS: BASO # 0.0 10*3/uL (0.0-0.1); BASO % 0.2 % (0.0-1.0); EOS # 0.1 10*3/uL (0.0-0.4); EOS % 1.6 % (1.0-4.0); MEAN CELL VOLUME 95.4 fl (81.0-99.0); MEAN CORPUSCULAR HGB 29.3 pg (27.0-31.0); MEAN PLATELET VOLUME 11.5 fl (9.6-12.3); MONO # 0.3 10*3/uL (0.1-1.0); MONO % 5.8 % (3.0-9.0); NEUT # 3.7 10*3/uL (2.3-7.9); NEUT % 65.4 % (47.0-73.0); NUCLEATED RED BLOOD CELL 0.0 % (0.0-0.0); NUCLEATED RED BLOOD CELL 0.0 10*3/uL (0.0-0.0); PLATELET COUNT AUTOMATED 174 10*3/uL (130-400); RED CELL DISTRI WIDTH 13.4 % (0-14.5)
[2025-05-18 07:56] LABS: BUN 22 mg/dl (9-23); LDL CHOLESTEROL 108 mg/dL (9-159); SGPT/ALT 18 U/L (5-49)
== END | disposition home or self-care (01) ==
LOC: LAB 07:06
PROVIDERS: ATTEND Nurse Practitioner
DX: I10 Essential (primary) hypertension (principal); E11.69 Type 2 diabetes mellitus with other specified complication; R63.5 Abnormal weight gain; E55.9 Vitamin D deficiency, unspecified

== ENCOUNTER 2025-06-20 09:38 | Emergency (ER) | payer OTHER ==
[~2025-06-20] VITALS: Ht 157.4 cm; Wt 99.8 kg
[2025-06-20 09:50] VITALS: BP 146/70
[2025-06-20] MEDS ORDERED: Albuterol Sulf/Ipratropium 3 ML VIAL NEB ONE (10:00)
[2025-06-20] MEDS ORDERED: Ondansetron Hydrochloride 4 MG/2 ML VIAL IV ONE (10:00)
[2025-06-20] MEDS ORDERED: SODIUM CHLORIDE 0.9% 1,000 ML IV ONE (10:00)
[2025-06-20] MEDS ORDERED: ACETAMINOPHEN 325 MG TAB PO ONE (10:10)
[2025-06-20 10:11] LABS: BASO # 0.0 10*3/uL (0.0-0.1); BASO % 0.2 % (0.0-1.0); EOS # 0.1 10*3/uL (0.0-0.4); EOS % 1.3 % (1.0-4.0); MEAN CELL VOLUME 92.4 fl (81.0-99.0); MEAN CORPUSCULAR HGB 29.5 pg (27.0-31.0); MEAN PLATELET VOLUME 10.7 fl (9.6-12.3); MONO # 0.4 10*3/uL (0.1-1.0); MONO % 4.7 % (3.0-9.0); NEUT # 7.5 10*3/uL (2.3-7.9); NEUT % 80.6 % (47.0-73.0); NUCLEATED RED BLOOD CELL 0.0 % (0.0-0.0); NUCLEATED RED BLOOD CELL 0.0 10*3/uL (0.0-0.0); PLATELET COUNT AUTOMATED 200 10*3/uL (130-400); RED CELL DISTRI WIDTH 12.9 % (0-14.5)
[2025-06-20 10:32] LABS: BUN 19 mg/dl (9-23)
[2025-06-20] MEDS ORDERED: Ondansetron4 MG PO (11:04)
[2025-06-20] MEDS ORDERED: PREDNISONE20 M1 PO (11:04)
[2025-06-20] MEDS ORDERED: Dexamethasone Sodium Phospha 20 MG/5 ML VIAL IV ONE (11:05)
[2025-06-20] MEDS ORDERED: ALBUTEROL 8 GM INHALER INH ONE (11:05)
== END 2025-06-20 11:14 | disposition home or self-care (01) ==
LOC: ED 09:38
PROVIDERS: Emergency Medicine
DX: J20.9 Acute bronchitis, unspecified (principal); E11.9 Type 2 diabetes mellitus without complications; Z87.891 Personal history of nicotine dependence; Z79.899 Other long term (current) drug therapy; Z79.4 Long term (current) use of insulin; Z98.890 Other specified postprocedural states; Z90.49 Acquired absence of other specified parts of digestive tract; Z20.822 Contact with and (suspected) exposure to COVID-19